=== PATIENT | female | born 1930 | race Caucasian/White ===

== ENCOUNTER → 2017-07-04 09:54 | Outpatient (CLI) | payer OTHER ==
[~2017-07-04 09:54] MED LIST: CARDIZEM30 MG PO; CIPRO500 MG PO; GLYCOTROL CAPS1 EACH PO; IRON 100 PLUS1 EACH PO; ULTRACET PO; VITAMIN D31000 UNIT PO; XOPENEX0.63 MG/3 IH
== END | disposition home or self-care (01) ==
LOC: LAB 09:54
DX: C78.7 Secondary malignant neoplasm of liver and intrahepatic bile duct (principal); C18.4 Malignant neoplasm of transverse colon; D51.3 Other dietary vitamin B12 deficiency anemia

== ENCOUNTER 2017-09-14 08:46 | Outpatient (CLI) | payer OTHER | END 2017-09-14 08:50 | disposition home or self-care (01) | LOC: TOM 08:46 | DX: C18.4 Malignant neoplasm of transverse colon (principal); C78.7 Secondary malignant neoplasm of liver and intrahepatic bile duct; D50.0 Iron deficiency anemia secondary to blood loss (chronic); D51.3 Other dietary vitamin B12 deficiency anemia; I10 Essential (primary) hypertension; I25.119 Atherosclerotic heart disease of native coronary artery with unspecified angina pectoris; I01.9 Acute rheumatic heart disease, unspecified; I50.89 Other heart failure; I49.5 Sick sinus syndrome | CPT/HCPCS: 71260; 74178; Q9965 ==

== ENCOUNTER 2018-01-02 11:12 | Outpatient (CLI) | payer OTHER | END 2018-01-02 11:13 | disposition home or self-care (01) | LOC: LAB 11:12 | DX: D50.0 Iron deficiency anemia secondary to blood loss (chronic) (principal); D51.3 Other dietary vitamin B12 deficiency anemia; C78.7 Secondary malignant neoplasm of liver and intrahepatic bile duct ==

== ENCOUNTER 2018-05-12 09:15 | Inpatient (IN) | payer OTHER ==
[~2018-05-12] VITALS: Ht 152.4 cm; Wt 45.4 kg
[2018-05-12] MEDS ORDERED: ALDACTONE50 MG PO (09:52)
[2018-05-12] MEDS ORDERED: ISOSORBIDE DINI20 MG PO (09:52)
[2018-05-12] MEDS ORDERED: COREG CR10 MG PO (09:52)
[2018-05-12] MEDS ORDERED: AMIODARONE HCL200 MG (09:53)
[2018-05-12] MEDS ORDERED: PLAVIX75 MG PO (09:53)
[2018-05-23] MEDS ORDERED: LEVOTHYROXINE25 MCG PO (10:40)
[2018-05-23] MEDS ORDERED: Diflucan 100MG TABLE PO (10:40)
[2018-05-23] MEDS ORDERED: Neurin-Sl Tablet Sl SL (10:40)
[2018-05-23] MEDS ORDERED: Coreg 6.25MG TABLET PO (10:40)
[2018-05-23] MEDS ORDERED: FUROSEMIDE20 MG PO (10:40)
[2018-05-23] MEDS ORDERED: B Complex CAPSULE PO (10:40)
== END 2018-05-23 15:31 | disposition home or self-care (01) | DRG 374 ==
LOC: ER 09:15 → MEDJ 18:32 → SURH 18:32
PROVIDERS: ADMIT Internal Medicine
PROC: 30233N1 Transfusion of Nonautologous Red Blood Cells into Peripheral Vein, Percutaneous Approach (ICD-10-PCS; principal; 2018-05-12)
PROC: 8E0ZXY6 Isolation (ICD-10-PCS; 2018-05-12)
PROC: B246ZZZ Ultrasonography of Right and Left Heart (ICD-10-PCS; 2018-05-14)
DX: C18.8 Malignant neoplasm of overlapping sites of colon (principal); I50.31 Acute diastolic (congestive) heart failure; A41.89 Other specified sepsis; C78.7 Secondary malignant neoplasm of liver and intrahepatic bile duct; L02.211 Cutaneous abscess of abdominal wall; N39.0 Urinary tract infection, site not specified; I24.9 Acute ischemic heart disease, unspecified; B37.89 Other sites of candidiasis; D63.0 Anemia in neoplastic disease; Z88.2 Allergy status to sulfonamides; Z88.6 Allergy status to analgesic agent; Z88.0 Allergy status to penicillin; E55.9 Vitamin D deficiency, unspecified; I11.0 Hypertensive heart disease with heart failure; D69.49 Other primary thrombocytopenia; B96.29 Other Escherichia coli [E. coli] as the cause of diseases classified elsewhere; I25.10 Atherosclerotic heart disease of native coronary artery without angina pectoris